=== PATIENT | female | born 2000 | race Caucasian/White ===

== ENCOUNTER 2022-01-22 14:03 | Inpatient (IN) ==
[2022-01-22 15:19] LABS: Influenza A virus by PCR Negative (Neg); Influenza B virus by PCR Negative (Neg); RSV by PCR Negative (Neg); SARS CoV2 RNA(COVID-19)Cepheid NEGATIVE (Negative)
--- NOTE | 2022-01-22 17:24 | Emergency Department Note ---
History of Present Illness General Chief complaint: Fever Stated complaint: WEAKNESS, FEVERS Time Seen by Provider: 01/22/22 17:23 History of Present Illness Maximum Pain Intensity: 7 This is a 21-year-old female who presents with fever, body aches, headache, neck pain, fatigue, and lightheadedness with ambulation. Symptoms initially began 3 to 4 days ago. She started with a fever 3 days ago in the 101-102 range, this comes and goes. She has been taking some Advil for her symptoms intermittently which does seem to improve the fever but then it returns. Today she was 96 when she woke up and 100.0 before coming to the emergency department. Over the weekend she felt like she was going to pass out when walking from her bedroom to the bathroom, did not pass out. Today she feels slightly better but still feels quite terrible. She is sleeping a lot more than normal. Endorses some generalized abdominal cramping but this is quite consistent with her menstrual period which she started several days ago. This was 1 week late which is not uncommon for her. She is sexually active. She denies any concern for sexually transmitted infection. Inserted a new tampon several hours ago. She has had a very mild intermittent cough, nothing significant, denies any chest pain or shortness of breath She has been trying to drink plenty of fluids and Pedialyte but feels like it is not enough. Her urine is a dark color. Denies any recent tick bites, does not spend much time outside. Denies any skin rash. Denies any neck rigidity, sore throat, sinus congestion, confusion, nausea, vo miting, diarrhea, abnormal vaginal discharge, dysuria, hematuria. Takes ADHD medication, no other medications on a daily basis. Not immunocompromise. Up-to-date on immunizations aside from influenza Home Medications Medication Instructions Recorded Confirmed Type guanfacine 2 mg tablet,extended 2 mg PO DAILY 01/22/22 01/22/22 History release 24 hr methylphenidate HCl 10 mg tablet 10 mg PO DAILY 01/22/22 01/22/22 History methylphenidate HCl 36 mg 36 mg PO DAILY 01/22/22 01/22/22 History tablet,extended release 24 hr (Concerta) Past Med/Surg History Medical History (Updated 01/22/22 @ 23:36 by DANA Mistry) ADHD Surgical History No pertinent past surgical history Social History Smoking Status: Never smoker Feels Safe at Home: Yes Review of Systems See HPI for pertinent positives & negatives. and A total of 10 systems reviewed and were otherwise negative Physical Exam Vital Signs Vital Signs - 24 hr 01/22/22 14:10 01/22/22 18:03 01/22/22 18:03 Temperature 98.2 F Temperature Source Temporal Artery Scan Pulse Rate 115 H Pulse Rate [Finger] 84 Respiratory Rate 20 18 Respiratory Effort / Characteristics Non-Labored Spontaneous Respiratory Depth Normal Blood Pressure 103/61 Blood Pressure [Right Arm] 108/74 Blood Pressure Mean 75 Blood Pressure Mean [Right Arm] 85 Blood Pressure Position Sitting Pulse Oximetry 98 99 98 Oxygen Delivery Method Room Air Room Air Sepsis Recent Fever Within 48 Hours Yes Sepsis New/Unexplained Change in Mental Status N/A Sepsis Action Taken by Nursing No Action Required 01/22/22 18:35 01/22/22 18:51 01/22/22 20:37 Temperature Temperature Source Pulse Rate Pulse Rate [Finger] 64 68 68 Respiratory Rate 18 20 20 Respiratory Effort / Characteristics Respiratory Depth Blood Pressure Blood Pressure [Right Arm] 103/68 108/69 110/60 Blood Pressure Mean Blood Pressure Mean [Right Arm] 79 82 76 Blood Pressure Position Pulse Oximetry 100 100 98 Oxygen Delivery Method Room Air Room Air Sepsis Recent Fever Within 48 Hours Sepsis New/Unexplained Change in Mental Status Sepsis Action Taken by Nursing 01/22/22 22:12 Temperature 98.1 F Temperature Source Oral Pulse Rate Pulse Rate [Finger] 68 Respiratory Rate 20 Respiratory Effort / Characteristics Respiratory Depth Blood Pressure Blood Pressure [Right Arm] 109/55 L Blood Pressure Mean Blood Pressure Mean [Right Arm] 73 Blood Pressure Position Pulse Oximetry 98 Oxygen Delivery Method Room Air Sepsis Recent Fever Within 48 Hours Sepsis New/Unexplained Change in Mental Status Sepsis Action Taken by Nursing CONSTITUTIONAL: Well developed, well nourished, mildly ill-appearing, nontoxic, conversational. HEAD: Normocephalic, atraumatic. EYES: PERRL, conjunctivae normal, extraocular muscles intact. ENMT: External ears normal. Nose with normal external appearance, no congestion. Oral mucous membranes moist. Oropharynx normal. NECK: Full active range of motion. LYMPHATIC: No cervical adenopathy RESPIRATORY: Breathing unlabored and symmetric. Lungs clear to auscultation bilaterally. No wheeze, rales, or rhonchi. CARDIOVASCULAR: Regular rate and rhythm. No murmurs, rubs, or gallops. CHEST: Nontender, no crepitus. ABDOMEN: Normal bowel sounds. Soft, nontender, no peritonitis. No masses. No CVA tenderness bilaterally. MUSCULOSKELETAL: Moves all extremities at all joints without pain or difficulty. No cyanosis or edema. Back with full range of motion. SKIN: [place], warm, dry. NEUROLOGIC: Awake, alert, oriented. Gaze is conjugate. Face symmetric, speech normal. Moves head and all four extremities spontaneously. Sensation and strength grossly intact. [Ambulates into room] PSYCHIATRIC: Appropriate. Normal affect Course Administered Medications Discontinued Medications Acetaminophen (Acetaminophen 325 Mg Tab) 650 mg PO NOW STA Stop: 01/22/22 17:43 Last Admin: 01/22/22 17:59 Dose: 650 mg Documented By: PARADISE Sodium Chloride (Nss 1000ml) 2,000 mls @ 999 mls/hr IV .Q2H1M ONE Stop: 01/22/22 19:42 Last Infusion: 01/22/22 19:23 Dose: 0 mls/hr Documented By: Admin: 01/22/22 17:59 Dose: 999 mls/hr Documented By: PARADISE Ceftriaxone Sodium (Rocephin) 2,000 mg in 70 mls @ 140 mls/hr IV NOW STA Stop: 01/22/22 20:32 Last Infusion: 01/22/22 21:42 Dose: 0 mls/hr Documented By: Admin: 01/22/22 20:41 Dose: 140 mls/hr Documented By: NIC Sodium Chloride (Nss 1000ml) 1,000 mls @ 999 mls/hr IV .Q1H1M ONE Stop: 01/22/22 21:04 Last Infusion: 01/22/22 21:42 Dose: 0 mls/hr Documented By: Admin: 01/22/22 20:30 Dose: 999 mls/hr Documented By: NIC Ioversol (Optiray 350 100ml) 82 ml IV ONCE ONE Stop: 01/22/22 20:51 Last Admin: 01/22/22 20:51 Dose: 82 ml Documented By: CARIE Medical Decision Making Differential Diagnosis Viral infection, sepsis, pneumonia, urinary tract infection, pyelonephritis, appendicitis, diverticulitis, sexually-transmitted infection, PID, toxic shock syndrome, meningitis, tickborne illness, rhabdomyolysis, abscess, among other pathology. Medical Records Attestation: I reviewed the patient's medical records. Laboratory Data Result diagrams: 01/22/22 18:00 01/22/22 18:00 Lab Results 01/22/22 01/22/22 01/22/22 Range/Units 14:14 18:00 18:00 WBC 22.63 H (4.8-10.8) K/ul RBC 5.08 (3.93-5.22) M/uL Hgb 14.1 (12.0-16.0) g/dl Hct 41.9 (34.1-44.9) % MCV 82.5 (80.0-100.0) fL MCH 27.8 (25.0-34.0) pg MCHC 33.7 (32.0-36.0) g/dL RDW Std Deviation 40.4 (36.4-46.3) fL RDW Coeff of Lisa 13.4 (11.5-14.5) % Plt Count 291 (130-400) K/uL MPV 9.9 (9.4-12.3) fL Immature Gran % (Auto) 1.0 % Neut % (Auto) 86.0 % Lymph % (Auto) 7.0 % Pierce % (Auto) 5.8 % Eos % (Auto) 0.0 % Baso % (Auto) 0.2 % Neut # (Auto) 19.45 H (1.4-6.5) K/uL Lymph # (Auto) 1.59 (1.2-3.4) K/uL Pierce # (Auto) 1.32 H (0.24-0.82) K/uL Eos # (Auto) 0.01 (0-0.50) K/uL Baso # (Auto) 0.04 (0-0.2) K/uL Immature Gran # (Auto) 0.22 H (0.00-0.02) K/uL Dohle Bodies 1+ Echinocytes 1+ Sodium 136 (136-145) mmol/L Potassium 3.8 (3.5-5.1) mmol/L Chloride 103 (98-107) mmol/L Carbon Dioxide 22 (21-32) mmol/L Anion Gap 11 (3-11) BUN 28 H (6-23) mg/dl Creatinine 1.11 (0.6-1.2) mg/dl Est Cr Clr Drug Dosing 70.9 ml/min Est GFR ( Amer) 83.4 ml/min Est GFR (Non-Af Amer) 71.9 ml/min BUN/Creatinine Ratio 25.2 H (10-20) Glucose 96 (70-99(Fasting)) mg/dl Lactate (0.4-2.0) mmol/L Calcium 9.4 (8.5-10.1) mg/dl Total Bilirubin 0.4 (0.2-1.0) mg/dl AST 51 H (13-39) U/L ALT 86 H (7-52) U/L Alkaline Phosphatase 107 H (34-104) U/L Total Creatine Kinase (26-192) U/L Total Protein 8.0 (6.0-8.3) gm/dl Albumin 3.8 (3.4-5.0) gm/dl Globulin 4.2 H (2.5-4.0) gm/dl Albumin/Globulin Ratio 0.9 (0.9-2) Lipase 11 (11-82) U/L Urine Color Urine Appearance (Clear) Urine pH (4.5-7.5) Ur Specific [place] (1.000-1.030) Urine Protein (Negative) Urine Glucose (UA) (Negative) Urine Ketones (Negative) Urine Blood (Negative) Urine Nitrite (Negative) Urine Bilirubin (Negative) Urine Urobilinogen (Negative) Ur Leukocyte Esterase (Negative) Urine WBC (Auto) (0-5) /hpf Urine RBC (Auto) (0-4) /hpf U Hyaline Cast (Auto) (0-5) /lpf U Epithel Cells (Auto) (0-5) /lpf Urine Bacteria (Auto) (Negative) POC Ur Test (NEG) Anaplasma Smear See Comment Babesia Smear See Comment Lyme Disease IgG Ab (Negative) Lyme Disease IgM Ab (Negative) SARS-CoV-2 (PCR) NEGATIVE (Negative) Monoscreen (Negative) Influenza Type A (PCR) Negative (Neg) Influenza Type B (PCR) Negative (Neg) RSV (RT-PCR) Negative (Neg) 01/22/22 01/22/22 01/22/22 Range/Units 18:00 19:08 19:18 WBC (4.8-10.8) K/ul RBC (3.93-5.22) M/uL Hgb (12.0-16.0) g/dl Hct (34.1-44.9) % MCV (80.0-100.0) fL MCH (25.0-34.0) pg MCHC (32.0-36.0) g/dL RDW Std Deviation (36.4-46.3) fL RDW Coeff of Lisa (11.5-14.5) % Plt Count (130-400) K/uL MPV (9.4-12.3) fL Immature Gran % (Auto) % Neut % (Auto) % Lymph % (Auto) % Pierce % (Auto) % Eos % (Auto) % Baso % (Auto) % Neut # (Auto) (1.4-6.5) K/uL Lymph # (Auto) (1.2-3.4) K/uL Pierce # (Auto) (0.24-0.82) K/uL Eos # (Auto) (0-0.50) K/uL Baso # (Auto) (0-0.2) K/uL Immature Gran # (Auto) (0.00-0.02) K/uL Dohle Bodies Echinocytes Sodium (136-145) mmol/L Potassium (3.5-5.1) mmol/L Chloride (98-107) mmol/L Carbon Dioxide (21-32) mmol/L Anion Gap (3-11) BUN (6-23) mg/dl Creatinine (0.6-1.2) mg/dl Est Cr Clr Drug Dosing ml/min Est GFR ( Amer) ml/min Est GFR (Non-Af Amer) ml/min BUN/Creatinine Ratio (10-20) Glucose (70-99(Fasting)) mg/dl Lactate 0.9 (0.4-2.0) mmol/L Calcium (8.5-10.1) mg/dl Total Bilirubin (0.2-1.0) mg/dl AST (13-39) U/L ALT (7-52) U/L Alkaline Phosphatase (34-104) U/L Total Creatine Kinase (26-192) U/L Total Protein (6.0-8.3) gm/dl Albumin (3.4-5.0) gm/dl Globulin (2.5-4.0) gm/dl Albumin/Globulin Ratio (0.9-2) Lipase (11-82) U/L Urine Color Urine Appearance (Clear) Urine pH (4.5-7.5) Ur Specific [place] (1.000-1.030) Urine Protein (Negative) Urine Glucose (UA) (Negative) Urine Ketones (Negative) Urine Blood (Negative) Urine Nitrite (Negative) Urine Bilirubin (Negative) Urine Urobilinogen (Negative) Ur Leukocyte Esterase (Negative) Urine WBC (Auto) (0-5) /hpf Urine RBC (Auto) (0-4) /hpf U Hyaline Cast (Auto) (0-5) /lpf U Epithel Cells (Auto) (0-5) /lpf Urine Bacteria (Auto) (Negative) POC Ur Test (NEG) Anaplasma Smear Cancelled Babesia Smear Cancelled Lyme Disease IgG Ab Negative (Negative) Lyme Disease IgM Ab Equivocal A (Negative) SARS-CoV-2 (PCR) (Negative) Monoscreen Negative (Negative) Influenza Type A (PCR) (Neg) Influenza Type B (PCR) (Neg) RSV (RT-PCR) (Neg) 01/22/22 01/22/22 01/22/22 Range/Units 19:20 19:45 19:45 WBC (4.8-10.8) K/ul RBC (3.93-5.22) M/uL Hgb (12.0-16.0) g/dl Hct (34.1-44.9) % MCV (80.0-100.0) fL MCH (25.0-34.0) pg MCHC (32.0-36.0) g/dL RDW Std Deviation (36.4-46.3) fL RDW Coeff of Lisa (11.5-14.5) % Plt Count (130-400) K/uL MPV (9.4-12.3) fL Immature Gran % (Auto) % Neut % (Auto) % Lymph % (Auto) % Pierce % (Auto) % Eos % (Auto) % Baso % (Auto) % Neut # (Auto) (1.4-6.5) K/uL Lymph # (Auto) (1.2-3.4) K/uL Pierce # (Auto) (0.24-0.82) K/uL Eos # (Auto) (0-0.50) K/uL Baso # (Auto) (0-0.2) K/uL Immature Gran # (Auto) (0.00-0.02) K/uL Dohle Bodies Echinocytes Sodium (136-145) mmol/L Potassium (3.5-5.1) mmol/L Chloride (98-107) mmol/L Carbon Dioxide (21-32) mmol/L Anion Gap (3-11) BUN (6-23) mg/dl Creatinine (0.6-1.2) mg/dl Est Cr Clr Drug Dosing ml/min Est GFR ( Amer) ml/min Est GFR (Non-Af Amer) ml/min BUN/Creatinine Ratio (10-20) Glucose (70-99(Fasting)) mg/dl Lactate (0.4-2.0) mmol/L Calcium (8.5-10.1) mg/dl Total Bilirubin (0.2-1.0) mg/dl AST (13-39) U/L ALT (7-52) U/L Alkaline Phosphatase (34-104) U/L Total Creatine Kinase 16 L (26-192) U/L Total Protein (6.0-8.3) gm/dl Albumin (3.4-5.0) gm/dl Globulin (2.5-4.0) gm/dl Albumin/Globulin Ratio (0.9-2) Lipase (11-82) U/L Urine Color Yellow Urine Appearance Cloudy A (Clear) Urine pH 5.5 (4.5-7.5) Ur Specific [place] 1.020 (1.000-1.030) Urine Protein 1+ H (Negative) Urine Glucose (UA) Negative (Negative) Urine Ketones 1+ H (Negative) Urine Blood 1+ H (Negative) Urine Nitrite Positive A (Negative) Urine Bilirubin Negative (Negative) Urine Urobilinogen Negative (Negative) Ur Leukocyte Esterase 2+ H (Negative) Urine WBC (Auto) >30 H (0-5) /hpf Urine RBC (Auto) 0-4 (0-4) /hpf U Hyaline Cast (Auto) 10-30 H (0-5) /lpf U Epithel Cells (Auto) >30 H (0-5) /lpf Urine Bacteria (Auto) 4+ H (Negative) POC Ur Test NEG (NEG) Anaplasma Smear Babesia Smear Lyme Disease IgG Ab (Negative) Lyme Disease IgM Ab (Negative) SARS-CoV-2 (PCR) (Negative) Monoscreen (Negative) Influenza Type A (PCR) (Neg) Influenza Type B (PCR) (Neg) RSV (RT-PCR) (Neg) Imaging Data Radiologist's Impression: Chest X-Ray 01/22/22 17:50 XR chest 2V PA/lateral HISTORY: fever, mild cough COMPARISON: None. FINDINGS: Mild S-shaped scoliosis of the thoracolumbar spine. The heart is normal in size. No pleural effusions. No pneumothorax. No focal lung consolidations to suggest a pneumonia. No evidence for pulmonary edema. IMPRESSION: No acute process. ACT 112: Negative or not required by law. Electronically signed by: Josiah Rangel M.D. 01/22/2022 7:05 PM Abdomen/Pelvis CT 01/22/22 20:[address] WITH IV CONTRAST CT DOSE: 280.50 mGy.cm HISTORY: Generalized abdominal pain. WBC 23, fever, diffuse abd cramping TECHNIQUE: Multiaxial CT images of the abdomen and pelvis were performed following the use of intravenous contrast. A dose lowering technique was utilized adhering to the principles of ALARA. COMPARISON STUDY: None. FINDINGS: There are trace bilateral pleural effusions. Mild dependent changes seen within the lungs posteriorly. No pneumoperitoneum. No pneumatosis. No fractures within the visualized osseous structures. Mild S-shaped scoliosis of the visualized thoracolumbar spine. The liver, gallbladder, pancreas, spleen, and adrenal glands are unremarkable. There is mild body wall edema and mild mesenteric edema. The main portal vein is patent. A few prominent left para- aortic lymph nodes which are likely reactive. Normal caliber abdominal aorta. There is a tampon within the vagina. No bladder wall thickening. The uterus and bilateral adnexa are unremarkable. Trace pelvic free fluid. No bowel wall thickening or obstruction. The appendix is partially visualized but appears unremarkable. There is heterogeneous enhancement within the bilateral kidneys, left greater than right, with left perinephric fat stranding/edema. Findings likely represent acute bilateral pyelonephritis. Focal wedge-shaped hypodensity within the left kidney on image 129 measures 1.7 cm consistent with an area of phlegmon. No evidence for renal abscess at this time. Mild urothelial thickening within the renal collecting systems and ureters. No hydronephrosis. IMPRESSION: 1. There is heterogeneous enhancement within the bilateral kidneys, left greater than right, with left perinephric fat stranding/edema consistent with an acute b ilateral pyelonephritis. 2. Focal wedge-shaped hypodensity within the left kidney measuring 1.7 cm consistent with an area of phlegmon. No evidence for renal abscess at this time. 3. No hydronephrosis. 4. Trace bilateral pleural effusions with mild body wall, mesenteric edema, trace pelvic free fluid. 5. Additional findings as described above. ACT 112: Negative or not required by law. Electronically signed by: Josiah Rangel M.D. 01/22/2022 9:45 PM MDM Narrative 21-year-old female presents with 3 to 4 days of nonspecific fevers, myalgias, fatigue, lightheadedness with ambulation, dark urine, and a mild cough. She is tachycardic at 115 at triage, somewhat ill-appearing initially, nontoxic. No meningismal signs. Clinically appears dry. No additional findings on exam. Differential diagnosis quite broad as above. She was given 2 L IV fluids for suspected dehydration which did begin to improve her tachycardia. Blood cultures obtained. Labs Leukocytosis at 22.6 with a left shift. BUN to creatinine ratio elevated at 25.2 consistent with dehydration. AST and ALT are mildly elevated which could be consistent with mononucleosis however her Monospot test was negative (could be false negative within the first week). Nikki-Zapata virus antibodies are pending. Could also be consistent with tickborne illness. Lyme IgM is equivocal, IgG is negative. Western blot pending. Anaplasma, Babesia, Ehrlichia pending. She was unable to produce a urine sample after 2 L IV fluid so was given a third liter and finally was able to produce a urine sample which is highly suspicious for infection. 2 g ceftriaxone administered. Imaging Chest x-ray is negative for pneumonia. CT abdomen and pelvis was recommended to evaluate for possible renal abscess. This does demonstrate bilateral pyelonephritis with a left 1.7 cm renal phlegmon, no obvious abscess. Tachycardia improved to 68. Updated patient and her mother on the phone throughout her visit. Admission was recommended for IV antibiotics and close monitoring, and patient and her mother were both agreeable with this plan. Spoke with Dr. Linares regarding the case who agrees to admit the patient for further management. Impression & Plan Pyelonephritis of right kidney, Pyelonephritis of left kidney, Leukocytosis, Elevated liver enzymes Discharge Plan Visit Data Chief Complaint: Fever Stated Complaint: WEAKNESS, FEVERS ED Provider: Allen Villatoro ED Midlevel Provider: Tony Wong Discharge Problem: Pyelonephritis of right kidney, Pyelonephritis of left kidney, Leukocytosis, Elevated liver enzymes Patient Disposition: Admitted As Inpatient Condition: Fair Forms Stand Alone Forms: [facility] [employer] Prescriptions Prescriptions: No Action methylphenidate HCl 10 mg tablet 10 mg PO DAILY methylphenidate HCl [Concerta] 36 mg tablet extended release 24hr 36 mg PO DAILY guanfacine 2 mg tablet extended release 24 hr 2 mg PO DAILY Referrals Referrals: PCP,NO [Primary Care Provider] - : Leukocytosis Qualifiers: Leukocytosis type: unspecified Qualified Code(s): D72.829 - Elevated white blood cell count, unspecified
[2022-01-22] MEDS ORDERED: SODIUM CHLORIDE 0.9% 1000ML 2,000 ML IV ONE (17:42)
[2022-01-22] MEDS ORDERED: ACETAMINOPHEN 325 MG TAB PO STA (17:42)
[2022-01-22 18:08] LABS: Basophils # (auto) 0.04 K/uL (0-0.2); Basophils % (auto) 0.2 %; Eosinophils # (auto) 0.01 K/uL (0-0.50); Hematocrit (blood only) 41.9 % (34.1-44.9); Hemoglobin 14.1 g/dl (12.0-16.0); Immature Granulocytes # (auto) 0.22 K/uL (0.00-0.02); Lymphocytes # (auto) 1.59 K/uL (1.2-3.4); Mean Corpuscular Hemoglobin 27.8 pg (25.0-34.0); Mean Corpuscular Hgb Conc 33.7 g/dL (32.0-36.0); Mean Corpuscular Volume 82.5 fL (80.0-100.0); Mean Platelet Volume 9.9 fL (9.4-12.3); Monocytes # (auto) 1.32 K/uL (0.24-0.82); Monocytes % (auto) 5.8 %; Neutrophils # (auto) 19.45 K/uL (1.4-6.5); Platelet Count 291 K/uL (130-400); RDW Coefficient of Variation 13.4 % (11.5-14.5); RDW Standard Deviation 40.4 fL (36.4-46.3); Red Blood Count 5.08 M/uL (3.93-5.22); White Blood Count 22.63 K/ul (4.8-10.8)
[2022-01-22 18:25] LABS: Monotest Negative (Negative)
[2022-01-22 18:26] LABS: Albumin Globulin Ratio 0.9 (0.9-2); Albumin Level 3.8 gm/dl (3.4-5.0); BUN Creatinine Ratio 25.2 (10-20); Bilirubin,Total 0.4 mg/dl (0.2-1.0); Calcium 9.4 mg/dl (8.5-10.1); Creatinine Clr Calc Pharmacy 70.9 ml/min; Est GFR (African American) 83.4 ml/min; Est GFR (Non-African American) 71.9 ml/min; Globulin 4.2 gm/dl (2.5-4.0); Potassium 3.8 mmol/L (3.5-5.1)
[2022-01-22 18:50] LABS: Lyme Ab IgG w/WB Rflx Negative (Negative)
[2022-01-22 19:07] LABS: Lyme Ab IgM w/WB Rflx Equivocal (Negative)
--- NOTE | 2022-01-22 19:08 | XRay Report ---
XR chest 2V PA/lateral HISTORY: fever, mild cough COMPARISON: None. FINDINGS: Mild S-shaped scoliosis of the thoracolumbar spine. The heart is normal in size. No pleural effusions. No pneumothorax. No focal lung consolidations to suggest a pneumonia. No evidence for pul monary edema. IMPRESSION: No acute process. ACT 112: Negative or not required by law. Electronically signed by: Josiah Rangel M.D. 01/22/2022 7:05 PM
[2022-01-22] MEDS ORDERED: cefTRIAXone SODIUM 2,000 MG/70 ML BAG IV STA (20:03)
[2022-01-22] MEDS ORDERED: SODIUM CHLORIDE 0.9% 1000ML 1,000 ML IV ONE (20:04)
[2022-01-22 20:12] LABS: Appearance Urine Cloudy (Clear); Bacteria Urine Automated 4+ (Negative); Bilirubin Urine Negative (Negative); Blood Urine 1+ (Negative); Color Urine Yellow; Epithelial Cell Urine Auto >30 /lpf (0-5); Glucose Urine UA Negative (Negative); Ketones Urine 1+ (Negative); Leukocyte Esterase Urine 2+ (Negative); Nitrite Urine Positive (Negative); Protein Urine 1+ (Negative); RBC Urine Automated 0-4 /hpf (0-4); Urobilinogen Urine Negative (Negative); WBC Urine Automated >30 /hpf (0-5); pH Urine 5.5 (4.5-7.5)
[2022-01-22 20:13] LABS: Dohle Bodies 1+; Echinocytes 1+
[2022-01-22] MEDS ORDERED: OPTIRAY 350 100ml IV ONE (20:50)
--- NOTE | 2022-01-22 21:47 | CT Scan Report ---
ABDOMEN AND PELVIS CT WITH IV CONTRAST CT DOSE: 280.50 mGy.cm HISTORY: Generalized abdominal pain. WBC 23, fever, diffuse abd cramping TECHNIQUE: Multiaxial CT images of the abdomen and pelvis were performed following the use of intrave nous contrast. A dose lowering technique was utilized adhering to the principles of ALARA. COMPARISON STUDY: None. FINDINGS: There are trace bilateral pleural effusions. Mild dependent changes seen within the lungs p osteriorly. No pneumoperitoneum. No pneumatosis. No fractures within the visualized osseous structure s. Mild S-shaped scoliosis of the visualized thoracolumbar spine. The liver, gallbladder, pancreas, s pleen, and adrenal glands are unremarkable. There is mild body wall edema and mild mesenteric edema. The main portal vein is patent. A few prominent left para-aortic lymph nodes which are likely reactiv e. Normal caliber abdominal aorta. There is a tampon within the vagina. No bladder wall thickening. T he uterus and bilateral adnexa are unremarkable. Trace pelvic free fluid. No bowel wall thickening or obstruction. The appendix is partially visualized but appears unremarkable. There is heterogeneous e nhancement within the bilateral kidneys, left greater than right, with left perinephric fat stranding /edema. Findings likely represent acute bilateral pyelonephritis. Focal wedge-shaped hypodensity with in the left kidney on image 129 measures 1.7 cm consistent with an area of phlegmon. No evidence for renal abscess at this time. Mild urothelial thickening within the renal collecting systems and ureter s. No hydronephrosis. IMPRESSION: 1. There is heterogeneous enhancement within the bilateral kidneys, left greater than right, with lef t perinephric fat stranding/edema consistent with an acute bilateral pyelonephritis. 2. Focal wedge-shaped hypodensity within the left kidney measuring 1.7 cm consistent with an area of phlegmon. No evidence for renal abscess at this time. 3. No hydronephrosis. 4. Trace bilateral pleural effusions with mild body wall, mesenteric edema, trace pelvic free fluid. 5. Additional findings as described above. ACT 112: Negative or not required by law. Electronically signed by: Josiah Rangel M.D. 01/22/2022 9:45 PM
--- NOTE | 2022-01-22 23:30 | History & Physical Report ---
Date of Service January 22, 2022 Assessment & Plan (1) Pyelonephritis: Plan: -CT in the ED showed bilateral pyelonephritis L>R with L kidney 1.7cm phlegmon -lyme, EBV, Ehrlichia, Babesia, and Anaplasma ordered in ED. Pending results. -Leukocytosis in the ED at 22. Will continue to monitor CBC -CK low, low suspicion for rhabdomyolysis. -UA and blood cultures pending. -Started on Ceftriaxone. (2) UTI (urinary tract infection): Plan: -UA + for UTI in ED. cultures pending. -Treat with Ceftriaxone as above. (3) ADHD: Plan: -Continue home meds. (4) Neck pain: Plan: -Negative Kernig and Brudzinski -Meningitis should remain on differential but most likely not the cause of the patient's symptoms. -LP not needed at this time. (5) Elevated liver enzymes: Plan: -Most likely 2/2 UTI and pyelonephritis. -Will continue to monitor with CMP morning labs. (6) Irregularly irregular cardiac rhythm: Plan: -Irregularly irregular rhythm heard on exam. -Will get EKG on admission Plan Fluids: NSS @ 80ml/hr Nutrition: regular Code status: full code DVT ppx: none Dispo: med/surg Thank you for allowing me to participate in the care of your patient. -Dr. Marques Pa PGY1 History of Present Illness Chief Complaint: fever, dizzy, fatigue Primary Care Provider: NO PCP Patient is a 21 y/o female who PHMx of ADHD who presents to the ED with fever, aches, SMITH, neck pain, back pain, lightheadedness, and fatigue since Friday. States that her fever has been in the 101-102 range at home treated with Advil. Has some ab pain with her menstrual period that is not abnormal. Sexually active with no concerns of STDs. Been drinking Pedialyte and fluids but urine has been dark in color. Patient states that leading up to her symptoms on Friday she had been going out drinking Friday, , and Friday. In the ED: afebrile with slight tachycardia, CXR negative, CT ab/pelvis showed: acute bilateral pyelonephritis L>R, L kidney 1.7cm phlegmon w/ no evidence of renal abscess, no hydronephrosis, trace bilateral pleural effusions, mesenteric edema, trace pelvic free fluid. labs remarkable for WBC 22.63, AST 51, ALT 86, Alk phos 107, CK 16. UA consistent with UTI. Started on Ceftriaxone and IV fluids. Allergies Allergy/AdvReac Type Severity Reaction Status Date / Time No Known Allergies Allergy Unverified 01/23/22 00:19 Home Medications Medication Instructions Recorded Confirmed Type guanfacine 2 mg tablet,extended 2 mg PO HS 01/22/22 01/23/22 History release 24 hr methylphenidate HCl 10 mg tablet 10 mg PO DAILY 01/22/22 01/22/22 History methylphenidate HCl 36 mg 36 mg PO QAM 01/22/22 01/23/22 History tablet,extended release 24 hr (Concerta) methylphenidate HCl 54 mg 54 mg PO QAM 01/23/22 01/23/22 History tablet,extended release 24 hr (Concerta) Past Med/Surg History Medical History (Updated 01/22/22 @ 23:52 by Marques Pa DO) ADHD Surgical History No pertinent past surgical history Social History Smoking Status: Current some day smoker Cigarettes Per Day: Vapes.; Second Hand Exposure: No; Do You Dip or Chew Tobacco: No; Tobacco Cessation Education Requested by Patient: No Hx Alcohol Use: Yes Alcohol type: wine Hx Substance Use: No Preferred Language: Citizen Of [place] Communication Ability: Effective Board Handler Required: No Beliefs That Will Affect Care: None Current Living Situation: Other Current Living Situation Comment: Apartment with Roomates. Patient is a [employer] student. Feels Safe at Home: Yes Safety Concerns: Feels Safe At This Time Assistive Devices: Glasses Review of Systems Review of Systems: Constitutional: +fatigue, fever HEENT: denies congestion, sore throat CV: denies chest pain, palpitations Resp: denies shortness of breath, cough GI: denies abdominal pain, nausea, vomiting, constipation, diarrhea : denies pain with urination, change in urinary frequency Neuro: denies new numbness, tingling, weakness Physical Exam Physical Exam: Constitutional: well-appearing, no acute distress HEENT: NCAT, no conjunctival injection CV: irregularly irregular rhythm, no murmur appreciated, extremities well- perfused, no LE edema Resp: CTABL, no wheezes/rales/rhonchi appreciated, no increased work of breathing GI: soft, nondistended, nontender, BS normoactive MSK: L CVA tenderness Skin: warm, dry, no rash appreciated Neuro: alert, oriented, no focal neurologic deficit appreciated. Negative Kernig and Brudzinski Results & Data Results & Data ([facility]) Vital Signs (Past 12 Hours) Vital Signs Temp Pulse Pulse Resp BP BP Pulse Ox 01/22/22 22:12 36.7 C 68 20 109/55 L 98 01/22/22 20:37 68 20 110/60 98 01/22/22 18:51 68 20 108/69 100 01/22/22 18:35 64 18 103/68 100 01/22/22 18:03 98 01/22/22 18:03 84 18 108/74 99 01/22/22 14:10 36.8 C 115 H 20 103/61 98 O2 Del Method 01/22/22 22:12 Room Air 01/22/22 20:37 Room Air 01/22/22 18:51 Room Air 01/22/22 18:35 01/22/22 18:03 Room Air 01/22/22 18:03 01/22/22 14:10 Room Air Supervising Physician Co-Signing Physician Notes Patient seen and examined, chart reviewed, case discussed with Dr. Pa and I agree with the assessment and plan as above. In brief, patient is a 21yo female presenting with acute bilateral pyelonephritis, mild elevation in LFTs. Fever, nausea, fatigue, back pain On exam she appears non-toxic in appearance Skin - intact HEENT - MMM, neck supple Heart - +S1/S2, regular Lungs- CTA Abd - +left CVA tenderness, mild abdominal discomfort, tenderness to palpation Ext - no edema Labs and images reviewed Assessment/Plan - Acute bilateral pyelonephritis. Immunocompetent, not Follow cultures Continue ceftriaxone Pain and nausea control Remainder as above Resident Activity Tracking Resident Involvement: Resident Care Provided Care Provided: Adult [facility] Medicine
[2022-01-22] MEDS ORDERED: SODIUM CHLORIDE 0.9% 1000ML 1,000 ML IV SCH (23:45)
--- NOTE | 2022-01-23 06:41 | Hospitalist Progress Note ---
Date of Service January 23, 2022 Assessment & Plan (1) Pyelonephritis: (2) UTI (urinary tract infection): (3) ADHD: (4) Neck pain: (5) Elevated liver enzymes: (6) Irregularly irregular cardiac rhythm: Plan Patient is a 21 y/o female who PHMx of ADHD who presents to the ED with fever, aches, SMITH, neck pain, back pain, lightheadedness, and fatigue since Friday. In the ED: afebrile with slight tachycardia, CXR negative, CT ab/pelvis showed: acute bilateral pyelonephritis L>R, L kidney 1.7cm phlegmon w/ no evidence of renal abscess, no hydronephrosis, trace bilateral pleural effusions, mesenteric edema, trace pelvic free fluid. labs remarkable for WBC 22.63, AST 51, ALT 86, Alk phos 107, CK 16. UA consistent with UTI. Started on Ceftriaxone and IV fluids. Pyelonephritis: -CT in the ED showed bilateral pyelonephritis L>R with L kidney 1.7cm phlegmon -lyme, EBV, Ehrlichia, Babesia, and Anaplasma ordered in ED -Leukocytosis in the ED at 22. Will continue to monitor CBC -CK low, low suspicion for rhabdomyolysis. -UA and blood cultures pending. -Started on Ceftriaxone. - 01/23 Urine cx: gram negative bacilli, sensitivities pending - 01/23 Blood cs: pending --- Continue Ceftriaxone --- 01/23 Patient febrile @ 0700, received Tylenol --- Consider discharge at 24 hours afebrile if otherwise clinicall stable --- PO abx transition pending sensitivities ADHD: - No home medication Elevated liver enzymes: - Most likely 2/2 UTI and pyelonephritis. - Will continue to monitor Irregularly irregular cardiac rhythm: -Irregularly irregular rhythm heard on exam. -Will get EKG on admission - showed NSR with sinus arrhythmia --- 01/23 Regular on exam, ordered repeat EKG Fluids: NSS @ 125 ml/hr Nutrition: regular Code status: full code DVT ppx: Re-evaluate 01/24 if not d/c Dispo: med/surg Admission and Anticipated Discharge Date Admission Date: January 22, 2022 Supervising Physician Co-Signing Physician Notes I also saw the patient along with the resident physician and confirmed yoon portions of the history and physical examination. I agree with impression and plan as noted the resident documentation. The patient is seen in her room. She is awake but awakens to voice. She states that she feels a little better than last night. She notes that she feels warm; she still has a fever at present. She notes some lower abdominal/suprapubic discomfort. She notes that the back pain she had yesterday is still present but markedly improved. Exam 112/56, 74, 17, 30.7, 90% on room air Alert and oriented. Nontoxic. Heart regular rate and rhythm. Lungs clear with nonlabored respirations Abdomen soft and generally nontender. Very minimal suprapubic tenderness. Extremities without edema Labs WBC 16.87 this morning, down from 22.63. Hemoglobin 11.3, down from 14.1, suspect dilutional. Sodium 135, potassium 3.6, BUN 12, creatinine 0.[address] scan abdomen pelvis dated 01/22/2022 shows evidence of bilateral acute pyelonephritis, focal wedge shaped hypodensity within the left kidney measuring 1.7 cm consistent with an area of phlegmon. No evidence for renal abscess. Micro Urine culture collected 01/22/2022 shows gram-negative bacilli, speciation is pending Blood cultures dated 01/22/2022 demonstrate no growth Assessment/Plan Acute bilateral pyelonephritis. Clinically some improvement overnight, although still febrile Continue Rocephin Follow cultures As needed medicines for pain and nausea Additional per resident documentation Subjective Patient is a 21 y/o female who PHMx of ADHD who presents to the ED with fever, aches, SMITH, neck pain, back pain, lightheadedness, and fatigue since Friday. 01/23: Patient resting comfortably upon arrival to room. States that she is feeling better already, but feels very warm. Patient notes that she is having LUQ abdominal pain but no RUQ or back pain. She is urinating well w/o dysuria or frequency. She denies any chest pain or shortness of breath. No pleuritic pain. She notes that she is a sophomore in college studying education and she is from [place], [place], she does not spend a significant amount of time outdoors and has not had any recent rashes or tick bites. She denies any neck or joint pain at visit. 0830 Nursing noted patient developed a fever. Review of Systems Review of Systems: As per HPI Physical Exam Physical Exam: Gen: NAD, alert, interactive Resp:Non-labored, faint crackles in bilateral lung bases, otherwise CTAB CV:RRR, normal S1/S2, no M/R/G Abd: Soft, non-distended, LUQ TTP, normoactive bowels, no masses, no CVA tenderness bilaterally Extr: 2+ dp bilaterally, no edema Skin: No rashes lesions or erythema Results & Data Results & Data ([facility]) Vital Signs (Past 12 Hours) Vital Signs Temp Pulse Resp BP Pulse Ox O2 Del Method 01/23/22 00:50 38.3 C H 95 H 18 110/68 98 Room Air 01/23/22 00:50 Room Air 01/23/22 00:50 Room Air 01/23/22 00:50 38.3 C H 95 H 18 110/68 98 Room Air 01/23/22 00:22 66 20 104/69 98 Room Air 01/22/22 22:12 36.7 C 68 20 109/55 L 98 Room Air 01/22/22 20:37 68 20 110/60 98 Room Air 01/22/22 18:51 68 20 108/69 100 Room Air Resident Activity Tracking Resident Involvement: Resident Care Provided Care Provided: Adult Hospital Medicine
--- NOTE | 2022-01-23 07:27 | Billing Data ---
Date of Service January 22, 2022 Coding Level of Care Code INT OBSERVATION CARE 50M LVL 2
[2022-01-23] MEDS ORDERED: ACETAMINOPHEN 325 MG TAB PO PRN (08:39)
[2022-01-23 09:16] LABS: Hematocrit (blood only) 33.7 % (34.1-44.9); Hemoglobin 11.3 g/dl (12.0-16.0); Mean Corpuscular Hgb Conc 33.5 g/dL (32.0-36.0); Mean Corpuscular Volume 80.6 fL (80.0-100.0); Mean Platelet Volume 9.9 fL (9.4-12.3); Platelet Count 270 K/uL (130-400); RDW Standard Deviation 38.1 fL (36.4-46.3); Red Blood Count 4.18 M/uL (3.93-5.22); White Blood Count 16.87 K/ul (4.8-10.8)
[2022-01-23] MEDS: METHYLPHENIDATE HCL 10 MG TABLET PO SCH ×2 (09:35→09:49)
[2022-01-23 10:28] LABS: Albumin Globulin Ratio 0.9 (0.9-2); BUN Creatinine Ratio 15.2 (10-20); Bilirubin,Total 0.3 mg/dl (0.2-1.0); Calcium 8.3 mg/dl (8.5-10.1); Est GFR (African American) 125.8 ml/min; Est GFR (Non-African American) 108.5 ml/min; Globulin 3.2 gm/dl (2.5-4.0); Potassium 3.6 mmol/L (3.5-5.1); Total Protein 6.2 gm/dl (6.0-8.3)
[2022-01-23] MEDS: LACTATED RINGER'S 1,000 ML IV SCH ×2 (12:06→18:31)
--- NOTE | 2022-01-23 14:04 | Electrocardiogram Report ---
Test Reason : Blood Pressure : / mmHG Vent. Rate : 070 BPM Atrial Rate : 070 BPM P-R Int : 168 ms QRS Dur : 072 ms QT Int : 368 ms P-R-T Axes : 022 002 023 degrees QTc Int : 397 ms Normal sinus rhythm with sinus arrhythmia Normal ECG No previous ECGs available Confirmed by Leland Buckley ([id number]) on 01/23/2022 2:04:03 PM Referred By: REFERRED SELF Confirmed By:Familia Buckley
--- NOTE | 2022-01-23 14:12 | Electrocardiogram Report ---
Test Reason : Blood Pressure : / mmHG Vent. Rate : 062 BPM Atrial Rate : 062 BPM P-R Int : 154 ms QRS Dur : 084 ms QT Int : 424 ms P-R-T Axes : -12 015 025 degrees QTc Int : 430 ms Normal sinus rhythm with sinus arrhythmia Normal ECG When compared with ECG of 22-JAN-2022 23:55, (unconfirmed) No significant change was found Confirmed by Leland Buckley ([id number]) on 01/23/2022 2:12:27 PM Referred By: REFERRED SELF Confirmed By:Familia Buckley
[2022-01-23] MEDS ORDERED: cefTRIAXone SODIUM 2,000 MG in DEXTROSE 5% 50 ML IV SCH (20:00)
[2022-01-23] MEDS ORDERED: MELATONIN 3 MG TAB PO PRN (20:55)
[2022-01-23] MEDS ORDERED: GUANFACINE 2 MG PO SCH (21:00)
[2022-01-24] MEDS: LACTATED RINGER'S 1,000 ML IV SCH ×2 (02:33→10:36)
--- NOTE | 2022-01-24 07:53 | Discharge Summary ---
Date of Service January 24, 2022 Admission HPI Per Admitting Provider Patient is a 21 y/o female who PHMx of ADHD who presents to the ED with fever, aches, SMITH, neck pain, back pain, lightheadedness, and fatigue since Friday. States that her fever has been in the 101-102 range at home treated with Advil. Has some ab pain with her menstrual period that is not abnormal. Sexually active with no concerns of STDs. Been drinking Pedialyte and fluids but urine has been dark in color. Patient states that leading up to her symptoms on Friday she had been going out drinking Friday, , and Friday. In the ED: afebrile with slight tachycardia, CXR negative, CT ab/pelvis showed: acute bilateral pyelonephritis L>R, L kidney 1.7cm phlegmon w/ no evidence of renal abscess, no hydronephrosis, trace bilateral pleural effusions, mesenteric edema, trace pelvic free fluid. labs remarkable for WBC 22.63, AST 51, ALT 86, Alk phos 107, CK 16. UA consistent with UTI. Started on Ceftriaxone and IV fluids. Admission Exam Per Admitting Provider Constitutional: well-appearing, no acute distress HEENT: NCAT, no conjunctival injection CV: irregularly irregular rhythm, no murmur appreciated, extremities well- perfused, no LE edema Resp: CTABL, no wheezes/rales/rhonchi appreciated, no increased work of breathing GI: soft, nondistended, nontender, BS normoactive MSK: L CVA tenderness Skin: warm, dry, no rash appreciated Neuro: alert, oriented, no focal neurologic deficit appreciated. Negative Kernig and Brudzinski Principal Diagnosis Pyelonephritis Discharge Exam Gen: NAD, alert, interactive Resp:Non-labored, CTAB, no wheezing CV:RRR, normal S1/S2, no M/R/G Abd: Soft, non-distended, no TTP, normoactive bowels, no masses, no CVA tenderne ss bilaterally Extr: 2+ dp bilaterally, no edema Skin: No rashes lesions or erythema Discharge Data Allergies Allergy/AdvReac Type Severity Reaction Status Date / Time No Known Allergies Allergy Unverified 01/23/22 00:19 Ordered Studies 01/22/22 20:03 CT Abd and Pelvis [CT abd pelvis IV con only] Stat Laboratory Results WBC 10.71 K/ul (4.8-10.8) 01/24/22 08:47 RBC 4.12 M/uL (3.93-5.22) 01/24/22 08:47 Hgb 11.2 g/dl (12.0-16.0) L 01/24/22 08:47 Hct 32.9 % (34.1-44.9) L 01/24/22 08:47 MCV 79.9 fL (80.0-100.0) L 01/24/22 08:47 MCH 27.2 pg (25.0-34.0) 01/24/22 08:47 MCHC 34.0 g/dL (32.0-36.0) 01/24/22 08:47 RDW Std Deviation 40.1 fL (36.4-46.3) 01/24/22 08:47 RDW Coeff of Lisa 13.8 % (11.5-14.5) 01/24/22 08:47 Plt Count 308 K/uL (130-400) 01/24/22 08:47 MPV 10.0 fL (9.4-12.3) 01/24/22 08:47 Immature Gran % (Auto) 1.0 % 01/22/22 18:00 Neut % (Auto) 86.0 % 01/22/22 18:00 Lymph % (Auto) 7.0 % 01/22/22 18:00 [place] % (Auto) 5.8 % 01/22/22 18:00 Eos % (Auto) 0.0 % 01/22/22 18:00 Baso % (Auto) 0.2 % 01/22/22 18:00 Neut # (Auto) 19.45 K/uL (1.4-6.5) H 01/22/22 18:00 Lymph # (Auto) 1.59 K/uL (1.2-3.4) 01/22/22 18:00 [place] # (Auto) 1.32 K/uL (0.24-0.82) H 01/22/22 18:00 Eos # (Auto) 0.01 K/uL (0-0.50) 01/22/22 18:00 Baso # (Auto) 0.04 K/uL (0-0.2) 01/22/22 18:00 Immature Gran # (Auto) 0.22 K/uL (0.00-0.02) H 01/22/22 18:00 Dohle Bodies 1+ 01/22/22 18:00 Echinocytes 1+ 01/22/22 18:00 Sodium 139 mmol/L (136-145) 01/24/22 08:47 Potassium 3.4 mmol/L (3.5-5.1) L 01/24/22 08:47 Chloride 109 mmol/L (98-107) H 01/24/22 08:47 Carbon Dioxide 23 mmol/L (21-32) 01/24/22 08:47 Anion Gap 7 (3-11) 01/24/22 08:47 BUN 6 mg/dl (6-23) 01/24/22 08:47 Creatinine 0.61 mg/dl (0.6-1.2) 01/24/22 08:47 Est Cr Clr Drug Dosing 132.1 ml/min 01/24/22 08:47 Est GFR ( Amer) > 150.0 ml/min 01/24/22 08:47 Est GFR (Non-Af Amer) 131.4 ml/min 01/24/22 08:47 BUN/Creatinine Ratio 9.8 (10-20) L 01/24/22 08:47 Glucose 105 mg/dl (70-99(Fasting)) H 01/24/22 08:47 Lactate 0.9 mmol/L (0.4-2.0) 01/22/22 19:08 Calcium 8.3 mg/dl (8.5-10.1) L 01/24/22 08:47 Total Bilirubin 0.3 mg/dl (0.2-1.0) 01/24/22 08:47 AST 24 U/L (13-39) 01/24/22 08:47 ALT 43 U/L (7-52) 01/24/22 08:47 Alkaline Phosphatase 92 U/L (34-104) 01/24/22 08:47 Total Creatine Kinase 16 U/L (26-192) L 01/22/22 19:20 Total Protein 5.9 gm/dl (6.0-8.3) L 01/24/22 08:47 Albumin 2.9 gm/dl (3.4-5.0) L 01/24/22 08:47 Globulin 3.0 gm/dl (2.5-4.0) 01/24/22 08:47 Albumin/Globulin Ratio 1.0 (0.9-2) 01/24/22 08:47 Lipase 11 U/L (11-82) 01/22/22 18:00 Urine Color Yellow 01/22/22 19:45 Urine Appearance Cloudy (Clear) A 01/22/22 19:45 Urine pH 5.5 (4.5-7.5) 01/22/22 19:45 Ur Specific [place] 1.020 (1.000-1.030) 01/22/22 19:45 Urine Protein 1+ (Negative) H 01/22/22 19:45 Urine Glucose (UA) Negative (Negative) 01/22/22 19:45 Urine Ketones 1+ (Negative) H 01/22/22 19:45 Urine Blood 1+ (Negative) H 01/22/22 19:45 Urine Nitrite Positive (Negative) A 01/22/22 19:45 Urine Bilirubin Negative (Negative) 01/22/22 19:45 Urine Urobilinogen Negative (Negative) 01/22/22 19:45 Ur Leukocyte Esterase 2+ (Negative) H 01/22/22 19:45 Urine WBC (Auto) >30 /hpf (0-5) H 01/22/22 19:45 Urine RBC (Auto) 0-4 /hpf (0-4) 01/22/22 19:45 U Hyaline Cast (Auto) 10-30 /lpf (0-5) H 01/22/22 19:45 U Epithel Cells (Auto) >30 /lpf (0-5) H 01/22/22 19:45 Urine Bacteria (Auto) 4+ (Negative) H 01/22/22 19:45 POC Ur Test NEG (NEG) 01/22/22 19:45 Anaplasma Smear Cancelled 01/22/22 19:18 Babesia Smear Cancelled 01/22/22 19:18 Lyme Disease IgG Ab Negative (Negative) 01/22/22 18:00 Lyme Disease IgM Ab Equivocal (Negative) A 01/22/22 18:00 SARS-CoV-2 (PCR) NEGATIVE (Negative) 01/22/22 14:14 Monoscreen Negative (Negative) 01/22/22 18:00 Influenza Type A (PCR) Negative (Neg) 01/22/22 14:14 Influenza Type B (PCR) Negative (Neg) 01/22/22 14:14 RSV (RT-PCR) Negative (Neg) 01/22/22 14:14 Impressions Chest X-Ray 01/22/22 17:50 XR chest 2V PA/lateral HISTORY: fever, mild cough COMPARISON: None. FINDINGS: Mild S-shaped scoliosis of the thoracolumbar spine. The heart is normal in size. No pleural effusions. No pneumothorax. No focal lung consolidations to suggest a pneumonia. No evidence for pulmonary edema. IMPRESSION: No acute process. ACT 112: Negative or not required by law. Electronically signed by: Josiah Rangel M.D. 01/22/2022 7:05 PM Abdomen/Pelvis CT 01/22/22 20:[address] WITH IV CONTRAST CT DOSE: 280.50 mGy.cm HISTORY: Generalized abdominal pain. WBC 23, fever, diffuse abd cramping TECHNIQUE: Multiaxial CT images of the abdomen and pelvis were performed fo llowing the use of intravenous contrast. A dose lowering technique was utilized adhering to the principles of ALARA. COMPARISON STUDY: None. FINDINGS: There are trace bilateral pleural effusions. Mild dependent changes seen within the lungs posteriorly. No pneumoperitoneum. No pneumatosis. No fractures within the visualized osseous structures. Mild S-shaped scoliosis of the visualized thoracolumbar spine. The liver, gallbladder, pancreas, spleen, and adrenal glands are unremarkable. There is mild body wall edema and mild mesenteric edema. The main portal vein is patent. A few prominent left para- aortic lymph nodes which are likely reactive. Normal caliber abdominal aorta. There is a tampon within the vagina. No bladder wall thickening. The uterus and bilateral adnexa are unremarkable. Trace pelvic free fluid. No bowel wall thickening or obstruction. The appendix is partially visualized but appears unremarkable. There is heterogeneous enhancement within the bilateral kidneys, left greater than right, with left perinephric fat stranding/edema. Findings likely represent acute bilateral pyelonephritis. Focal wedge-shaped hypodensity within the left kidney on image 129 measures 1.7 cm consistent with an area of phlegmon. No evidence for renal abscess at this time. Mild urothelial thickening within the renal collecting systems and ureters. No hydronephrosis. IMPRESSION: 1. There is heterogeneous enhancement within the bilateral kidneys, left greater than right, with left perinephric fat stranding/edema consistent with an acute bilateral pyelonephritis. 2. Focal wedge-shaped hypodensity within the left kidney measuring 1.7 cm consistent with an area of phlegmon. No evidence for renal abscess at this time. 3. No hydronephrosis. 4. Trace bilateral pleural effusions with mild body wall, mesenteric edema, trace pelvic free fluid. 5. Additional findings as described above. ACT 112: Negative or not required by law. Electronically signed by: Josiah Rangel M.D. 01/22/2022 9:45 PM Hospital Course (1) Pyelonephritis: (2) UTI (urinary tract infection): (3) ADHD: (4) Neck pain: (5) Elevated liver enzymes: (6) Irregularly irregular cardiac rhythm: Plan Patient is a 21 y/o female who PHMx of ADHD who presents to the ED with fever, aches, SMITH, neck pain, back pain, lightheadedness, and fatigue since Friday. In the ED: afebrile with slight tachycardia, CXR negative, CT ab/pelvis showed: acute bilateral pyelonephritis L>R, L kidney 1.7cm phlegmon w/ no evidence of renal abscess, no hydronephrosis, trace bilateral pleural effusions, mesenteric edema, trace pelvic free fluid. labs remarkable for WBC 22.63, AST 51, ALT 86, Alk phos 107, CK 16. UA consistent with UTI. Started on Ceftriaxone and IV fluids. Pyelonephritis: -CT in the ED showed bilateral pyelonephritis L>R with L kidney 1.7cm phlegmon -lyme, EBV, Ehrlichia, Babesia, and Anaplasma ordered in ED -Leukocytosis in the ED at 22. Will continue to monitor CBC -CK low, low suspicion for rhabdomyolysis. -UA and blood cultures pending. -Started on Ceftriaxone. - 01/23 Urine cx: gram negative bacilli, sensitivities pending - 01/23 Blood cs: no growth 24 hours - 01/23 Continue Ceftriaxone --- 01/24 Patient febrile @ 0700 01/23, received Tylenol @ 0900 01/23 --- 01/24 Urine Culture: Gram negative, sensitive to Ceftriaxone --- Discharge on Cefdinir 300 mg BID 14 days --- Follow up in office with Dr. Ritchie 01/30 @ [id number] ([id number]) ADHD: - No home medication Elevated liver enzymes: - Most likely 2/2 UTI and pyelonephritis. - Will continue to monitor Irregularly irregular cardiac rhythm: -Irregularly irregular rhythm heard on exam. -Will get EKG on admission - showed NSR with sinus arrhythmia --- 01/24 Regular on exam Fluids: NSS @ 125 ml/hr Nutrition: regular Code status: full code DVT ppx: D/c Dispo: med/surg Total Time Total Time Spent Total Time Spent (In Minutes): See attending attestation Discharge Plan Discharge Items Patient Disposition: Home - Self-Care Reason For Visit: PYELONEPHRITIS Discharge Diagnosis: Pyelonephritis Condition on Discharge: Good Activity: Per Instructions section Non-emergency contact: Primary Care Provider Call non-emergency contact if: your symptoms worsen, your pain is worsening and you have a fever Follow-up/Referrals: Aguila Ritchie DO [Resident] - PCP,NO [Primary Care Provider] - Diet: Regular Addtl Attending Provider Instructions: You were admitted to the hospital for an infection in your kidneys (left > right) and a urinary tract infection. You were treated with antibiotics and monitored for a fever while you were in the hospital. We also gave you fluids. A discharge summary will be sent to your primary care physician to ensure continuity of care. Please bring this discharge summary with you to your next office appointment so that your provider can review it at that time. Follow-up appointments: - Follow up appointment with Dr. Aguila Ritchie 01/30/22 @ 2:50 PM - Make a follow-up appointment with your PCP within the next week. It is very important that you follow up with them shortly after discharge from the hospital. We have requested a follow-up appointment with your primary care physician within one week of discharge. Please call their office if you do not hear from them. Medications: - Your medication list has been reviewed and reconciled upon discharge to ensure accuracy and continuity of care. An updated list of all your medications is included with your hospital discharge paperwork. Please review this list closely, and make note of any changes. - We sent a new medication called Cefdinir. Please take 300 mg of this medication two times a day for 14 days. - Please try to consume at least 64 ounces of water each day. - You may used Tylenol over the counter as recommended on the bottle, at home to manage your pain. - If you have any issues filling these prescriptions, please call [phone] and ask to leave a message for Dr. Ritchie. - Take your medications as instructed; do not skip a dose of your medicines. Make sure all of your doctors know every medicine you are taking (including psvj-bvy-ikhxede medicines, vitamins, and supplements). - Call your primary care provider before taking any new medicines (including over- the-counter medicines, vitamins, and supplements), because some of these may interact with your current medications, or may make your symptoms worse. - Tell your primary care provider if you cannot afford your medications. Contact your Primary Care Provider if you experience: - Increased pain - Fever - Difficulty following your treatment plan or taking medications Call 911 or go to the emergency department if you experience: - Sudden, severe abdominal pain or nausea/vomiting - Severe chest pain, or chest pain that radiates (moves) to your jaw or arm - Sudden, severe shortness of breath or difficulty breathing It was a pleasure to be a part of your care, Dr. Aguila Ritchie Pending Studies at Discharge: Yes Studies:: Lyme, EBV, Anaplasma, Babesia Stand-Alone Forms: My [employer], Smoking Cessation Medications and DC Order Prescriptions: New cefdinir 300 mg Capsule 300 mg PO BID 14 Days Qty: 28 0RF Continued methylphenidate HCl 10 mg tablet 10 mg PO DAILY methylphenidate HCl [Concerta] 36 mg tablet extended release 24hr 36 mg PO QAM guanfacine 2 mg tablet extended release 24 hr 2 mg PO HS methylphenidate HCl [Concerta] 54 mg tablet extended release 24hr 54 mg PO QAM Discharge Orders: Discharge Order (Routine); Ordered 01/24/22 Ordered By: Aguila Ritchie Admission Data Admit Date/Time: 01/23/22 11:34 Attending Provider: Alex Almanza Admit Provider: Marques Pa Primary Care Provider: PCP,NO Other Interventions: Discharge Summary Assessment (RN) Last Done: 01/24/22 12:51 Supervising Physician Co-Signing Physician Notes I also saw the patient along with the resident physician and confirmed yoon portions of the history and physical examination. I agree with impression and plan as noted the resident documentation. Upon exam this morning, the patient is seated in her bed. Her mother is at bedside. Patient denies any discomfort. She feels well. No dysuria. Denies CVA tenderness. The lower abdominal suprapubic tenderness he had yesterday is also resolved. She is not had a fever in greater than 24 hours without antipyretics. Exam 118/63, 50, 18, 37.3, 97% room air Alert and oriented. Nontoxic. Heart regular rate and rhythm. Lungs clear with nonlabored respirations Abdomen soft and nontender Extremities without edema Labs WBC 10.71, hemoglobin 11.2, platelet count 308 Sodium 139, potassium 3.4, BUN 6, creatinine 0.[address] scan abdomen pelvis dated 01/22/2022 shows evidence of bilateral acute pyelonephritis, focal wedge shaped hypodensity within the left kidney measuring 1.7 cm consistent with an area of phlegmon. No evidence for renal abscess. Micro Urine culture collected 01/22/2022 shows greater 100,000 colonies E. coli Blood cultures dated 01/22/2022 demonstrate no growth Assessment/Plan Acute bilateral pyelonephritis, clinically improving Transition to oral antibiotics Potassium repleted prior to discharge Follow-up in our office middle of next week Discussed signs and symptoms for which to monitor All questions answered for the patient and her mother who was at bedside Additional per resident documentation Resident Activity Tracking Resident Involvement: Resident Care Provided Care Provided: Adult Hospital Medicine
[2022-01-24] MEDS ORDERED: METHYLPHENIDATE HCL 36 MG PO SCH (09:00)
[2022-01-24] MEDS ORDERED: PATIENT'S OWN CONTROLLED MED 1 PO SCH (09:00)
[2022-01-24 09:10] LABS: Hematocrit (blood only) 32.9 % (34.1-44.9); Hemoglobin 11.2 g/dl (12.0-16.0); Mean Corpuscular Hemoglobin 27.2 pg (25.0-34.0); Mean Corpuscular Volume 79.9 fL (80.0-100.0); Platelet Count 308 K/uL (130-400); RDW Coefficient of Variation 13.8 % (11.5-14.5); RDW Standard Deviation 40.1 fL (36.4-46.3); Red Blood Count 4.12 M/uL (3.93-5.22); White Blood Count 10.71 K/ul (4.8-10.8)
[2022-01-24 09:40] LABS: Alanine Aminotransferase 43 U/L (7-52); Albumin Level 2.9 gm/dl (3.4-5.0); Alkaline Phosphatase 92 U/L (34-104); Anion Gap 7 (3-11); Aspartate Aminotransferase 24 U/L (13-39); BUN Creatinine Ratio 9.8 (10-20); Bilirubin,Total 0.3 mg/dl (0.2-1.0); Blood Urea Nitrogen 6 mg/dl (6-23); Calcium 8.3 mg/dl (8.5-10.1); Carbon Dioxide 23 mmol/L (21-32); Chloride 109 mmol/L (98-107); Creatinine Clr Calc Pharmacy 132.1 ml/min; Est GFR (African American) > 150.0 ml/min; Est GFR (Non-African American) 131.4 ml/min; Glucose 105 mg/dl (70-99(Fasting)); Potassium 3.4 mmol/L (3.5-5.1); Sodium 139 mmol/L (136-145); Total Protein 5.9 gm/dl (6.0-8.3)
[2022-01-24] MEDS ORDERED: POTASSIUM CHLORIDE CRTAB 20 MEQ TABCR PO STA (09:42)
[2022-01-24] MEDS ORDERED: CEFDINIR 300 MG CAP PO SCH (11:30)
[2022-01-25 15:01] LABS: 18KDIGG Band NON-REACTIVE; 23KDIGG Band NON-REACTIVE; 23KDIGM Band REACTIVE; 28KDIGG Band NON-REACTIVE; 30KDIGG Band NON-REACTIVE; 39KDIGG Band NON-REACTIVE; 39KDIGM Band NON-REACTIVE; 41KDIGG Band NON-REACTIVE; 41KDIGM Band NON-REACTIVE; 45KDIGG Band NON-REACTIVE; 58KDIGG Band REACTIVE; 66KDIGG Band NON-REACTIVE; 93KDIGG Band NON-REACTIVE; Lyme Antibodies, WB IgG NEGATIVE (NEGATIVE); Lyme Antibodies, WB IgM NEGATIVE (NEGATIVE)
[2022-01-26 06:56] LABS: Babesia microti DNA Not Detected (Not Detected)
[2022-01-29 01:06] LABS: Ehrlichia chaff DNA Bld Negative (Negative)
== END 2022-01-24 14:30 | disposition home or self-care (01) | DRG 690 ==
LOC: 3N 14:03 → ED 14:03 → SUATTDRO 23:49 → 3N 01-23 00:45